=== PATIENT | male | born 1995 | race Caucasian/White ===

== ENCOUNTER 2020-01-26 15:44 | Emergency (ER) | payer BC, OTHER ==
--- NOTE | 2020-01-26 16:43 | EDM.PDOC ---
ED HPI GENERAL MEDICAL PROBLEM - General Chief Complaint: Lower Extremity Injury/Pain Stated Complaint: RT KNEE INJURY Time Seen by Provider: 01/26/20 16:04 Source of Information: Reports: Patient History Limitations: Reports: No Limitations - History of Present Illness INITIAL COMMENTS - FREE TEXT/NARRATIVE: The patient presents with right knee pain. He was at work breaking down boxes and it felt like his right knee may have hyperextended. He injured it about 8 years ago. He has no other injuries. Onset: Sudden Duration: Minutes: Location: Reports: Lower Extremity, Right (lateral knee) Quality: Reports: Sharp Severity: Moderate Improves with: Reports: Immobilization Worsens with: Reports: Movement Context: Reports: Trauma (May have hyperextended his knee) Associated Symptoms: Reports: No Other Symptoms Treatments FOOT TENDER: Reports: Other (see below) Other Treatments FOOT TENDER: none Right Knee Pain Score (Numeric/FACES): 7 - Related Data Allergies Allergy/AdvReac Type Severity Reaction Status Date / Time atomoxetine [From Strattera] Allergy Swelling Verified 10/20/18 13:06 blue dye Allergy Diarrhea Verified 10/20/18 13:06 Home Meds: Home Meds . [No Known Home Meds] 10/20/18 [History] Past Medical History Psychiatric History: Reports: ADHD, Anxiety, Depression - Past Surgical History HEENT Surgical History: Reports: Other (See Below) Other HEENT Surgeries/Procedures: torn left retina with repair at grade level 4 in school Social & Family History - Tobacco Use Smoking Status *Q: Current Every Day Smoker Years of Tobacco use: 10 Packs/Tins Daily: 0.5 - Caffeine Use Caffeine Use: Reports: Coffee - Recreational Drug Use Recreational Drug Use: Yes Recreational Drug Type: Reports: Marijuana/Hashish Other Recreational Drug Type: daily Review of Systems - Review of Systems Review Of Systems: See Below Constitutional: Reports: No Symptoms Eyes: Reports: No Symptoms Ears: Reports: No Symptoms Nose: Reports: No Symptoms Mouth/Throat: Reports: No Symptoms Respiratory: Reports: No Symptoms Cardiovascular: Reports: No Symptoms GI/Abdominal: Reports: No Symptoms Genitourinary: Reports: No Symptoms Musculoskeletal: Reports: Other (Right knee pain) ED EXAM, GENERAL - Physical Exam Exam: See Below Exam Limited By: No Limitations General Appearance: Alert, No Apparent Distress Ears: Normal External Exam Nose: Normal Inspection Head: Atraumatic, Normocephalic Neck: Normal Inspection Respiratory/Chest: No Respiratory Distress Extremities: Other (Pain upon palpation to the right medial lower knee. Good sensation distally. Ligaments feel stable.) Course - Vital Signs Last Recorded V/S: Last Vital Signs Temp 99.0 F 01/26/20 16:08 Pulse 95 01/26/20 16:08 Resp 20 01/26/20 16:08 BP 123/80 01/26/20 16:08 Pulse Ox 98 01/26/20 16:08 - Orders/Labs/Meds Orders: Active Orders 24 hr Category Date Time Status Knee Min 4V Rt [CR] Stat Exams 01/26/20 16:23 Taken Durable Medical Equipment for Discharge [DME for Oth 01/26/20 16:46 Ordered Discharge] [COMM] Stat - Re-Assessments/Exams Free Text/Narrative Re-Assessment/Exam: 01/26/20 16:48 I ordered an x-ray and it looks good. I will discharge him home with a knee immobilizer. Departure - Departure Time of Disposition: 17:00 Disposition: Home, Self-Care 01 Condition: Good Clinical Impression: Sprain of right knee Qualifiers: Encounter type: initial encounter Involved ligament of knee: unspecified ligament Qualified Code(s): S83.91XA - Sprain of unspecified site of right knee , initial encounter - Discharge Information *PRESCRIPTION DRUG MONITORING PROGRAM REVIEWED*: Not Applicable *COPY OF PRESCRIPTION DRUG MONITORING REPORT IN PATIENT SCOT: Not Applicable Referrals: Chaitanya Mckeon Jr, MD [Primary Care Provider] - 1 Week Oskar Ascencio MD [Physician] - 1 Week Forms: ED Department Discharge Additional Instructions: Ice your knee for 15 minutes 3 times per day for 2 days. Wear the knee immobilizer as needed for comfort. Take motrin or tylenol for pain. Follow up with Dr Ascencio if you are not better in a week. Sepsis Event Note - Evaluation Sepsis Screening Result: No Definite Risk - Focused Exam Vital Signs: Vital Signs Temp Pulse Resp BP Pulse Ox 01/26/20 16:08 99.0 F 95 20 123/80 98 Date Exam was Performed: 01/26/20 Time Exam was Performed: 16:46 - My Orders Last 24 Hours: My Active Orders 01/26/20 16:23 Knee Min 4V Rt [CR] Stat 01/26/20 16:46 Durable Medical Equipment for Discharge [DME for Discharge] [COMM] Stat - Assessment/Plan Last 24 Hours: My Active Orders 01/26/20 16:23 Knee Min 4V Rt [CR] Stat 01/26/20 16:46 Durable Medical Equipment for Discharge [DME for Discharge] [COMM] Stat
--- NOTE | 2020-01-26 16:52 | CR ---
Right knee: 4 views of the right knee were obtained. Comparison: No prior knee study. Medial and lateral joint compartments are maintained in height. No joint effusion is seen. No fracture or other bony abnormality is appreciated. Impression: 1. No abnormality is identified on 4 view right knee exam. Diagnostic code #1 Study was dictated in MDT
== END 2020-01-26 17:05 | disposition home or self-care (01) ==
LOC: JD.ED 15:44
DX: S83.91XA Sprain of unspecified site of right knee, initial encounter (principal); F17.210 Nicotine dependence, cigarettes, uncomplicated; Z88.8 Allergy status to other drugs, medicaments and biological substances; Z91.048 Other nonmedicinal substance allergy status; X58.XXXA Exposure to other specified factors, initial encounter
CPT/HCPCS: 73564-26-RT; 73564-RT; 99283-25

== ENCOUNTER 2020-03-09 14:08 | Emergency (ER) | payer BC ==
[2020-03-09] MEDS ORDERED: Ketorolac 60 MG/2 ML SDV IM ONE (14:34)
[2020-03-09] MEDS ORDERED: Amoxicillin/Clavulanate K 875-125 MG Tab PO ONE (14:34)
--- NOTE | 2020-03-09 14:38 | EDM.PDOC ---
ED HPI GENERAL MEDICAL PROBLEM - General Chief Complaint: ENT Problem Stated Complaint: DENTAL COMPLAINT Time Seen by Provider: 03/09/20 14:18 Source of Information: Reports: Patient, RN Notes Reviewed History Limitations: Reports: No Limitations - History of Present Illness INITIAL COMMENTS - FREE TEXT/NARRATIVE: Patient is a 24-year-old male who presents to the ED for evaluation of ongoing dental pain. Patient notes that he has been having issues with a tooth on the upper right back jaw, for around 2 months, but the pain did intensify around 1-1 /2 to 2 weeks ago. Patient states that it is very difficult to chew due to the pain, he is still eating and drinking however. He notes that he has been taking 6 tablets of Advil every 4 hours, with little to no pain relief. He has been trying to call dentistry, but has been unable to secure an appointment at this time. He notes that he does go to [facility] for dental care. Patient denies any sick-like symptoms, fever/chills, cough/shortness of breath, throat pain, throat swelling, nausea/vomiting/diarrhea. Right Upper Tooth/Teeth Pain Score (Numeric/FACES): 10 - Related Data Allergies Allergy/AdvReac Type Severity Reaction Status Date / Time atomoxetine [From Strattera] Allergy Swelling Verified 03/09/20 14:14 blue dye Allergy Diarrhea Verified 03/09/20 14:14 Home Meds: Home Meds Amoxicillin/Clavulanate K [Augmentin 875-125 MG] 1 tab PO BID #14 tablet [Rx] Naproxen [Naprosyn] 500 mg PO Q12HR #14 tab 03/09/20 [Rx] Past Medical History Neurological History: Reports: Concussion Psychiatric History: Reports: ADHD, Anxiety, Depression - Past Surgical History HEENT Surgical History: Reports: Other (See Below) Other HEENT Surgeries/Procedures: torn left retina with repair at grade level 4 in school. 2 bottom teeth (root cannels) Social & Family History - Tobacco Use Smoking Status *Q: Current Every Day Smoker Years of Tobacco use: 10 Packs/Tins Daily: 0.5 - Caffeine Use Caffeine Use: Reports: Coffee - Recreational Drug Use Recreational Drug Use: No ED ROS ENT - Review of Systems Review Of Systems: Comprehensive ROS is negative, except as noted in HPI. ED EXAM, ENT - Physical Exam Exam: See Below Exam Limited By: No Limitations General Appearance: Alert, WD/WN, No Apparent Distress (pt is standing at bedside, and is complaining of pain, somewhat tearful/dramatic in presentation.) Eye Exam: Bilateral Eye: EOMI, Normal Inspection, PERRL Ears: Normal External Exam, Normal Canal, Hearing Grossly Normal, Normal TMs Nose: Normal Inspection Mouth/Throat: Normal Inspection, Normal Gums, Normal Lips, Normal Oropharynx, Dental Pain (to R upper last molar, multiple cavities/some with fillings, others without throughout dentition.). No: Dental Trauma, Throat Pain, Tonsillar Swelling, Trismus Head: Atraumatic, Normocephalic Neck: Normal Inspection, Supple, Non-Tender, Full Range of Motion Respiratory/Chest: No Respiratory Distress, Lungs Clear, Normal Breath Sounds, No Accessory Muscle Use, Chest Non-Tender Cardiovascular: Normal Peripheral Pulses, Regular Rate, Rhythm, No Murmur Neurological: Alert, Oriented, Normal Cognition, No Motor/Sensory Deficits Psychiatric: Normal Affect, Normal Mood Skin: Warm, Dry, Intact, Normal Color, No Rash Course - Vital Signs Last Recorded V/S: Last Vital Signs Temp 95.7 F L 03/09/20 14:10 Pulse 86 03/09/20 14:10 Resp 20 03/09/20 14:10 BP 147/101 H 03/09/20 14:10 Pulse Ox 99 03/09/20 14:10 - Re-Assessments/Exams Free Text/Narrative Re-Assessment/Exam: 03/09/20 14:39 Patient presents to the ED for his ongoing tooth pain. We will give him 60 mg IM injection of Toradol, and start his Augmentin in the ER, he will be directed to take the antibiotics as prescribed and the Naprosyn for further pain relief. Departure - Departure Time of Disposition: 14:39 Disposition: Home, Self-Care 01 Condition: Good Clinical Impression: Dental caries, Pain, dental - Discharge Information *PRESCRIPTION DRUG MONITORING PROGRAM REVIEWED*: No *COPY OF PRESCRIPTION DRUG MONITORING REPORT IN PATIENT SCOT: No Instructions: Diet and Dental Disease Referrals: PCP,None [Primary Care Provider] - Additional Instructions: You have been evaluated in the ED for your dental pain. You have been provided with a script for Augmentin. This was electronically sent to the [place] pharmacy located in the [facility]. Please take this medication as directed. (1 tab twice daily for 7 days or until gone). This antibiotic can cause diarrhea, recommend that you start a probiotic while taking this medication. Ask the pharmacist for a recommendation. You were given a prescription for Naprosyn, Please take 1 tab every 12 hours for pain relief. You may use hot pack/ ice packs to the affected area as tolerated in 15-20 minute intervals. You will ultimately need to find a dentist to provide definitive management of your dental pain. Please keep calling to try to obtain an appointment for evaluation and treatment. The [facility] in [place], [place], , is a clinic that has been known to take people that do not have dental insurance, and may provide payment plans. You might want to check with this provider, regarding your dental pain. Please return to the ED if your symptoms change or worsen. Sepsis Event Note - Evaluation Sepsis Screening Result: No Definite Risk - Focused Exam Vital Signs: Vital Signs Temp Pulse Resp BP Pulse Ox 03/09/20 14:10 95.7 F L 86 20 147/101 H 99 Date Exam was Performed: 03/09/20 Time Exam was Performed: 14:33
== END 2020-03-09 15:02 | disposition home or self-care (01) ==
LOC: JD.ED 14:08
DX: K02.9 Dental caries, unspecified (principal); F17.210 Nicotine dependence, cigarettes, uncomplicated; Z88.8 Allergy status to other drugs, medicaments and biological substances
CPT/HCPCS: 96372; 99283; A9270; J1885

== ENCOUNTER 2020-04-28 04:59 | Emergency (ER) | payer BC | END 2020-04-28 06:30 | disposition home or self-care (01) | LOC: JD.ED 04:59 | DX: K03.81 Cracked tooth (principal) | CPT/HCPCS: 99282 ==

== ENCOUNTER 2025-07-30 21:03 | Emergency (ER) | payer SELFPAY ==
[2025-07-30] MEDS ORDERED: Naloxone 0.4 MG/ML SDV IVPUSH PRN ×2 (21:48→23:41)
[2025-07-30] MEDS ORDERED: Sodium Chloride 0.9% 10 ML Syringe FLUSH PRN (21:48)
[2025-07-30] MEDS: Ondansetron 4 MG/2 ML SDV IVPUSH ONE (21:56)
[2025-07-30] MEDS: Iopamidol 612 MG/ML 100 ML Bottle IVPUSH ONE (22:48)
[2025-07-30] MEDS: Sodium Chloride 0.9% 10 ML Syringe FLUSH ONE (22:48)
[2025-07-30] MEDS: Iopamidol 612 MG/ML 30 ML SDV IVPUSH ONE (22:48)
== END 2025-07-31 00:20 | disposition home or self-care (01) ==
LOC: JD.ED 21:03
DX: S06.0X0A Concussion without loss of consciousness, initial encounter (principal); S20.211A Contusion of right front wall of thorax, initial encounter; S00.03XA Contusion of scalp, initial encounter; S00.83XA Contusion of other part of head, initial encounter; M54.2 Cervicalgia; F17.200 Nicotine dependence, unspecified, uncomplicated; Z88.8 Allergy status to other drugs, medicaments and biological substances; Z91.048 Other nonmedicinal substance allergy status; Z79.899 Other long term (current) drug therapy; Y04.8XXA Assault by other bodily force, initial encounter; Y99.0 Civilian activity done for income or pay
CPT/HCPCS: 70450; 70486; 71260; 72125; 74177; 96374; 96376; 99284; J2270; J2405; J7030; Q9967